=== PATIENT | male | born 1970 | race Caucasian/White ===

== ENCOUNTER 2022-11-02 00:35 | Day surgery (SDC) | payer OTHER, SELFPAY ==
[2022-10-25 12:54] VITALS: BMI 26.5
--- NOTE | 2022-11-02 07:26 | SUR.PREOP ---
pt escorted into pre-op with halfway guards and hospital security.
[2022-11-02 07:35] VITALS: BP 99/70; PULSE 82; RESP 20; TEMP 36.6; O2SAT 100; BMI 34.8
[2022-11-02] MEDS: LACTATED RINGERS 1,000 ML 150 ML IV CONT (07:37)
[2022-11-02 07:41] VITALS: BMI 34.8
--- NOTE | 2022-11-02 08:05 | P.PNAN_ITS ---
Anes - Initial Pre Proc Eval Procedure: Operation Date: 11/02/22 09:00 Proposed Procedures p Esophagogastroduodenoscopy & Colonoscopy - Juan Rdz MD Date/Time: 11/02/22 08:05 Surgeon: Jaun Rdz MD Pre Op Diagnosis: GERD, Neoplasm screening Patient Data Age: 52 Gender: M Height: 1.55 m Weight: 83.7 kg Last Vital Signs Temp 36.6 C 11/02/22 07:35 Pulse 82 11/02/22 07:35 Resp 20 11/02/22 07:35 BP 99/70 L 11/02/22 07:35 Pulse Ox 100 11/02/22 07:35 O2 Del Method Room Air 11/02/22 07:35 Allergies Allergy/AdvReac Type Severity Reaction Status Date / Time No Known Allergies Allergy Verified 11/02/22 07:26 Home Medications Medication Instructions Recorded Confirmed Type albuterol sulfate 90 mcg/actuation 2 puff inhalation QID PRN 10/25/22 10/25/22 History aerosol inhaler Shortness Of Breath Or Wheezing atorvastatin 20 mg tablet 20 mg PO HS 10/25/22 10/25/22 History fluticasone propionate 50 1 spray intranasal Q12H 10/25/22 10/25/22 History mcg/actuation nasal spray,suspension mometasone 220 mcg/actuation(120 2 inh inhalation BID 10/25/22 10/25/22 History doses)breath activated powder inhaler omeprazole 20 mg capsule,delayed 20 mg PO HS 10/25/22 10/25/22 History release Patient hx anesthesia problems: none Family hx anesthesia problems: none Results Review: All pre-operative results and documents have been reviewed as part of the pre- operative evaluation. [facility] Past Medical History Medical History (Updated 11/02/22 @ 08:07 by Chad Saenz MD) Asthma CKD (chronic kidney disease), stage I Hyperlipidemia Anes - Eval Final PreProcedure Day of Procedure 11/02/22 08:05 Patient weight: obese Heart: regular rate and rhythm Lungs: clear to auscultation and normal air movement Airway: Mallampati scale class II Neurological: alert and oriented Last oral intake: >/= 8 hours ASA classification: III Emergent: no Anesthetic plan: proceed Anesthesia type and monitoring: general GIVS Results Review: All pre-operative results and documents have been reviewed as part of the pre- operative evaluation. Informed Consent: The patient's anesthetic plan and its attendant risks and benefits were discussed with the patient/family/POA. Questions were solicited and answers provided to the satisfaction of the patient/family/POA.
--- NOTE | 2022-11-02 08:55 | SUR.OPER ---
Patient accompanied into procedure room by beach lifeguard.
--- NOTE | 2022-11-02 08:58 | PM.HPGS ---
History of Present Illness History of Present Illness Consent: Risks, benefits, and alternatives have been discussed and questions answered. Patient agrees to proceed with procedure. Chief complaint: GERD, Neoplasm screening Narrative: Willard Villanueva is a 52 year old male with gerd for years on ppi, also needs screening colonoscopy Review of Systems Constitutional: Constitutional: Denies headache(s) and Denies weakness Eyes: Eyes: Denies blurry vision ENT: Reports Normal hearing present, Denies headache(s) and Denies neck pain Cardiovascular: Cardiovascular: Denies chest pain and Denies dyspnea Respiratory: Respiratory: Denies dyspnea Gastrointestinal: Gastrointestinal: Reports no additional gastrointestinal complaints Genitourinary: Genitourinary: Denies dysuria Musculoskeletal: Musculoskeletal: Denies neck pain Integumentary/Breasts: Skin/Breast: Denies dry skin Neurologic: Reports Normal hearing present, Denies headache(s) and Denies weakness Psychiatric: Psychiatric: Denies anxiety Endocrine: Endocrine: Denies change in body appearance Hematologic/Lymphatic: Hematologic/Lymphatic: Denies easy bleeding Allergic/Immunologic: Allergic/Immunologic: Denies urticaria [facility] Past Medical History Medical History (Updated 11/02/22 @ 09:03 by Juan Rdz MD) Asthma CKD (chronic kidney disease), stage I Colon cancer screening GERD (gastroesophageal reflux disease) Hyperlipidemia Meds Home Medications and Allergies Home Medications Medication Instructions Recorded Confirmed Type albuterol sulfate 90 mcg/actuation 2 puff inhalation QID PRN 10/25/22 10/25/22 History aerosol inhaler Shortness Of Breath Or Wheezing atorvastatin 20 mg tablet 20 mg PO HS 10/25/22 10/25/22 History fluticasone propionate 50 1 spray intranasal Q12H 10/25/22 10/25/22 History mcg/actuation nasal spray,suspension mometasone 220 mcg/actuation(120 2 inh inhalation BID 10/25/22 10/25/22 History doses)breath activated powder inhaler omeprazole 20 mg capsule,delayed 20 mg PO HS 10/25/22 10/25/22 History release Allergies Allergy/AdvReac Type Severity Reaction Status Date / Time No Known Allergies Allergy Verified 11/02/22 07:26 Vital Signs Vital Signs - 24 hr 11/02/22 07:35 Temperature 97.9 F Pulse Rate 82 Respiratory Rate 20 Blood Pressure 99/70 L Pulse Oximetry 100 Oxygen Delivery Room Air Exam Const: General: comfortable and no acute distress HENMT: Face/Nose/Sinus: Normal nares present Eyes: General: appearance normal, both eyes and all related structures Neck: Neck: no JVD Resp: Auscultation: clear to auscultation bilaterally Cardio: Rate: regular rate Rhythm: regular rhythm GI: Inspection: non-distended GI Palp: Yes Soft to palpation Skin: General skin exam: normal color Neuro: General: gait normal Speech: normal speech Extrem: General: normal to inspection Psych: Mental Status: mental status grossly normal Assessment and Plan Assessment and plan (1) GERD (gastroesophageal reflux disease): Code(s): K21.9 - Gastro-esophageal reflux disease without esophagitis Status: Acute Assessment and Plan: on ppi egd with bx (2) Colon cancer screening: Code(s): Z12.11 - Encounter for screening for malignant neoplasm of colon Status: Acute Assessment and Plan: colonoscopy
--- NOTE | 2022-11-02 09:20 | SUR.OPER ---
EGD started at 0859 and ended at 902. Colonoscopy started at 907 and ended at 918.
[2022-11-02 09:23] VITALS: BP 94/65; PULSE 71; RESP 17; O2SAT 97
[2022-11-02 09:33] VITALS: BP 99/68; PULSE 67; RESP 17; O2SAT 100
[2022-11-02 09:43] VITALS: BP 108/76; PULSE 69; RESP 19; O2SAT 100
== END 2022-11-02 09:53 | disposition home or self-care (01) ==
PROVIDERS: Visit Provider Internal Medicine Gastroenterology
PROC: 0DJ08ZZ Inspection of Upper Intestinal Tract, Via Natural or Artificial Opening Endoscopic (ICD-10-PCS; CPT 43235; principal; 2022-11-02 09:00)
DX: Z12.11 Encounter for screening for malignant neoplasm of colon (principal); K64.8 Other hemorrhoids; K44.9 Diaphragmatic hernia without obstruction or gangrene; K21.9 Gastro-esophageal reflux disease without esophagitis; K29.50 Unspecified chronic gastritis without bleeding; B96.81 Helicobacter pylori [H. pylori] as the cause of diseases classified elsewhere; J45.909 Unspecified asthma, uncomplicated; N18.1 Chronic kidney disease, stage 1; E78.5 Hyperlipidemia, unspecified; Z79.51 Long term (current) use of inhaled steroids; E66.9 Obesity, unspecified; Z68.34 Body mass index [BMI] 34.0-34.9, adult
CPT/HCPCS: 45378; 43239; 88305; J2001; J2704; J7120